=== PATIENT | female | born 1940 | race Caucasian/White ===

== ENCOUNTER 2025-06-20 19:12 | Emergency (ER) | payer OTHER, SELFPAY ==
[2025-06-20 19:18] VITALS: BP 120/71
[2025-06-20 21:03] VITALS: BP 157/70
[2025-06-20 21:08] VITALS: BMI 32.6
[2025-06-20 21:43] LABS: Hematocrit 39.5 % (37.0-47.0); Hemoglobin 12.9 g/dL (12.0-16.0); Mean Corp Hgb Conc. 32.7 g/dL (33.0-37.0); Mean Corpuscular Volume 84.8 fL (81.0-99.0); Nucleated Red Blood Cells % 0 %; Platelet Count 211 10^3/uL (130-400); Red Cell Dist. Width 13.2 % (11.5-14.5)
--- NOTE | 2025-06-20 21:59 | EDRN ---
Pt says pt had a normal BM, then couldnt go for 3-4 days so she took a senna. This happened a second time so pt took a whole bottle of miralax and had diarrhea and was unable go again so she took senna again. Pt took a lower dose of miralax after
couple days. Pt has not had a BM for 4-5 days now. Pt feels tenderness LLQ if she pushes on the area. No n/v, fever/chills. Pt with decreased appetite. Pt went to doctor 1 month ago and says she had kidney pain and had a urinalysis and started
on an abx. Couple days later pt was informed she did not have a uti, pt had finished abx.
[2025-06-20 22:00] VITALS: BP 161/95
[2025-06-20 22:06] LABS: ALT (SGPT) 16 U/L (0-35); AST (SGOT) 25 U/L (14-36); Albumin 4.2 g/dl (3.5-5.0); Alkaline Phosphatase 71 U/L (38-126); Blood Urea Nitrogen 19 mg/dl (7-17); Calcium 9.3 mg/dl (8.4-10.2); Carbon Dioxide 24 mmol/L (22-30); Chloride 103 mmol/L (98-107); Estimated Creatinine Clearance 28 ml/min; Glucose 86 mg/dl (70-99); Potassium 4.6 mmol/L (3.5-5.1); Sodium 136 mmol/L (135-145); Total Protein 6.8 g/dl (6.3-8.2); eGFR 33.73
[2025-06-20 23:00] VITALS: BP 124/57
[2025-06-21 01:20] VITALS: BP 131/59
--- NOTE | 2025-06-21 01:29 | ED.GENMED ---
History of Present Illness
General
Chief Complaint: Bowel Problem
Source: patient and family
Exam Limitations: none
Time Seen by Provider: 06/20/25 21:07
Nursing documentation reviewed up to this point in time: agreed with
History of Present Illness
History of Present Illness:
84-year-old female presenting to the emergency department today with concerns of difficulty with bowel movement over the past 5 days or so. Patient had some episodes of liquid stool and does have discomfort to the left lower quadrant. Denies any
chest pain shortness of breath or fevers.
Past History
Past History
ED Past Medical History: HTN and Other (Osteoarthritis); Negative CAD
ED Past Surgical History: Cholecystectomy, Gynecological (Hysterectomy) and Orthopedic (Bilateral hip replacement, right knee replacement)
Social History
Tobacco: Former smoker
Alcohol: None
Personal:
Living: alone
Family History
Family History: Negative CAD or Sudden
Review of Systems
Review of Systems
Allergies reviewed?: Yes
All Other Systems: ROS reviewed and negative except as documented in HPI and ROS
Phy Exam
Physical Exam
Physical Exam:
GENERAL: Alert , in no apparent distress
EYE: pupils equal and reactive
NECK: Supple, no significant adenopathy.
ENT: o/p clr, mmm.
CARDIAC: Regular rate and rhythm .
LUNGS: Clear breath sounds bilaterally, no acute respiratory distress, no wheezes/rales/rhonchi
ABDOMEN: Tenderness to palpation to the left lower quadrant
NEUROLOGICAL: Alert and oriented, no focal neuro deficits
SKIN: Warm and dry, skin intact.
MUSCULOSKELETAL: No edema, well perfused.
PSYCH: Normal and appropriate interaction.
Course
Orders/Labs/Results
Orders:
Orders
06/20/25 19:23
Obstruct Series W/PA Chest [CR Obstruct Series W/pa Chest] Urgent
Comment:
Reason For Exam: constipation
06/20/25 21:16
CT Abd/Pel (IV only)-DH only Urgent
Comment:
Reason For Exam: llq pain
Bladder Scan- Treatment ONCE
06/20/25 21:31
Complete Blood Count/With Diff Urgent
Comprehensive Metabolic Panel Urgent
Lactic Acid Urgent
06/21/25 01:28
Amoxicillin 875 mg/Clav 125 mg [Augmentin 875 mg/125 mg] 1 tablet PO NOW STA
Abnormal Lab Results
06/20/25
21:31
MCHC 32.7 L g/dL
(33.0-37.0)
Absolute Monos (auto) 0.7 H 10^3/uL
(0.1-0.6)
BUN 19 H mg/dl
(7-17)
Creatinine 1.5 H mg/dL
(0.6-1.0)
06/20/25 21:31
06/20/25 21:31
Vital Signs
Initial and Last Documented VS:
Initial Vital Signs
Temp Pulse Resp BP Pulse Ox
98.2 F 74 18 120/71 97
06/20/25 19:18 06/20/25 19:18 06/20/25 19:18 06/20/25 19:18 06/20/25 19:18
Last Documented Vital Signs
Temp Pulse Resp BP Pulse Ox
98.2 F 68 14 131/59 97
06/20/25 19:18 06/21/25 01:20 06/21/25 01:20 06/21/25 01:20 06/21/25 01:29
MDM/Problems Addressed
MDM/Problems Addressed:
84-year-old female presenting to the emergency department today with concerns of left lower quadrant Drew pain and decreasing bowel movements over the past week. On arrival vital signs normal labs unremarkable she does have reproducible pain to
left lower quadrant thus she had a CT scan. CT scan did not show any life-threatening pathology did show inflammation to the colon consistent with colitis. She was already on antibiotics and otherwise advised for close outpatient follow-up.
Return precautions given.
*Pulse Oximetry
SaO2: 97
Oxygen Mode of Delivery: Room air
Patient hypoxic: no (97)
*Critical Care Note
Total Time (30-74mins, 75-104mins- exclusive of procedures): Not Applicable
ED Attending Note
-
Portions of this chart may have been created with voice recognition software.� Occasional wrong word or��sound alike� substitutions may have occurred due to the inherent limitations of voice recognition software.
Discharge Plan
Departure
Patient Disposition: Home (Routine Discharge)
Date of Disposition: 06/21/25
Time of Disposition: 01:29
Patient with high blood pressure during this ER visit?: No
Condition: Good
Covid-19: Not Applicable
Discharge Problem:
Colitis
Instructions: Colitis (DC)
Prescriptions:
New
amoxicillin-pot clavulanate 875-125 mg tablet
1 tab PO BID 7 Days Qty: 14 0RF
No Action
Co Q-10 300 mg Capsule
300 mg PO DAILY
[place] Red
900 mg PO DAILY
multivitamin Tablet
1 tab PO DAILY
lisinopril 30 mg Tablet
30 mg PO DAILY
Referrals:
UNKNOWN,NO INTERVIEW [Family Provider]
Activity Restrictions/Additional Instructions:
You came to the emergency department today with concerns of abdominal pain and bowel movement changes. You are found have colitis. Please take the prescribed antibiotic and follow-up closely with your GI doctor or primary care doctor in the next
week or 2. Return for any worsening, new or concerning symptoms.
Interventions
Interventions:
*Risk Screen - Suicide Last Done: 06/20/25 19:21
*General Assessment Last Done: 06/20/25 19:21
*Neglect/Abuse Screening Last Done: 06/20/25 19:21
*ED- Fall Risk Assessment Last Done: 06/20/25 21:08
*ED COVID-19 Vaccine History Last Done: 06/20/25 19:21
*ED Influenza Vaccine History Last Done: 06/20/25 19:21
*Nursing Disposition Last Done: 06/21/25 01:38
PH-Jxrmmm-Cnacvzknfv Assessment Last Done: 06/20/25 22:13
Discharge Date and Time
Discharge Date/Time: 06/21/25 01:38
Print Language: SWEDISH
[2025-06-21] MEDS: AUGMENTIN 875 MG/125 MG 1 TABLET PO (01:35)
== END 2025-06-21 01:38 | disposition home or self-care (01) ==
LOC: EMR 19:12
PROVIDERS: Physician Assistant; EMERGENCY PHYSICIAN Emergency Medicine
DX: K52.9 Noninfective gastroenteritis and colitis, unspecified (principal); K59.00 Constipation, unspecified; I10 Essential (primary) hypertension; M19.90 Unspecified osteoarthritis, unspecified site; Z87.891 Personal history of nicotine dependence; Z96.643 Presence of artificial hip joint, bilateral; Z96.651 Presence of right artificial knee joint
CPT/HCPCS: 99284; 74022; 74177; 80053; 83605; 85025; Q9967